=== PATIENT | female | born 1965 | race Caucasian/White ===

== ENCOUNTER 2017-12-15 21:08 | Emergency (ER) | payer MEDICAID ==
[2017-12-15] MEDS: DIPHENHYDRAMINE 50 MG CAP PO (21:52)
[2017-12-15] MEDS: HYDROCODONE/APAP (5/325) TAB PO (21:52)
[2017-12-15 22:17] LABS: ADD MAN DIFF? NO
[2017-12-15 22:20] LABS: BASOPHILS % 0.6 % (0.0-2.0); EOSINOPHILS # 0.4 10^3/ul (0.0-0.5); EOSINOPHILS % 5.6 % (0.0-7.0); HEMOGLOBIN 14.3 g/dl (12.0-16.0); LYMPHOCYTES # 2.4 10^3/ul (0.8-2.9); LYMPHOCYTES % 34.3 % (15.0-51.0); MEAN CORPUSCULAR HEMOGLOBIN 30.6 pg (29.0-33.0); MEAN CORPUSCULAR HGB CONC 33.3 g/dl (32.0-37.0); MEAN CORPUSCULAR VOLUME 91.9 fl (82.0-101.0); MEAN PLATELET VOLUME 9.4 fl (7.4-10.4); MONOCYTE # 0.7 10^3/ul (0.3-0.9); MONOCYTES % 10.2 % (0.0-11.0); NEUTROPHIL # 3.4 10^3/ul (1.6-7.5); PLATELET COUNT 178 10^3/UL (140-415); RED BLOOD COUNT 4.68 10^6/ul (4.20-5.40); RED CELL DISTRIBUTION WIDTH 12.9 % (11.5-14.5)
[2017-12-15 22:24] LABS: PLATELET COUNT 172 10^3/UL (140-415)
[2017-12-15 22:38] LABS: ALANINE AMINOTRANSFERASE 76 IU/L (13-69); ALBUMIN 4.9 g/dl (3.3-4.9); ALBUMIN/GLOBULIN RATIO 1.44; ALKALINE PHOSPHATASE 94 IU/L (42-121); ANION GAP 14 (8-16); ASPARTATE AMINO TRANSFERASE 51 IU/L (15-46); BILIRUBIN,INDIRECT 0.8 mg/dl (0-1.1); BILIRUBIN,TOTAL 0.8 mg/dl (0.2-1.3); BLOOD UREA NITROGEN 9 mg/dl (7-20); CALCIUM 9.4 mg/dl (8.4-10.2); CARBON DIOXIDE 27 mmol/L (21-31); CHLORIDE 105 mmol/L (97-110); CREATININE 0.82 mg/dl (0.44-1.00); GLUCOSE 107 mg/dl (70-220); POTASSIUM 3.5 mmol/L (3.5-5.1); SODIUM 142 mmol/L (135-144); TOTAL PROTEIN 8.3 g/dl (6.1-8.1)
[2017-12-15 22:41] LABS: INR 0.97
[2017-12-15 22:42] LABS: PARTIAL THROMBOPLASTIN TIME 27.4 Sec (25.0-35.0); THROMBIN TIME 14.9 SEC (13.8-19.1)
[2017-12-16 15:05] LABS: RHEUMATOID FACTOR NEGATIVE (NEGATIVE)
[2017-12-18 14:08] LABS: ANA SCREEN NEGATIVE (NEGATIVE)
== END 2017-12-16 | disposition home or self-care (01) ==
LOC: FTE 12-16
DX: L30.9 Dermatitis, unspecified (principal)
CPT/HCPCS: 36415; 73610; 80053; 85025; 85049; 85610; 85670; 85730; 86038; 86430; 99284-25